=== PATIENT | male | born 1975 | race Caucasian/White ===

== ENCOUNTER 2018-02-06 09:35 | Inpatient (IN) | payer MEDICAID ==
[~2018-02-06] VITALS: Ht 162.6 cm; Wt 74.8 kg
[2018-02-06] VITALS (9 sets, daily range): BP systolic 91–122; BP diastolic 51–74
--- NOTE | 2018-02-06 09:35 | NUR ---
PER EMS PT WAS REPORTED TO HAVE VOMITTED BLOOD X 2 EPISODES THIS AM. PT WAS HYPOTENSIVE ON SCENE 70 SYSTOLIC. 600 CCS NSS GIVEN BY EMS. JAUNDICED APPEARANCE, ALERT AND ORIENTED ON ARRIVAL. PT ADMITS VOMITTING BLOOD; SKIN IS INTACT, JAUNDICED/WARM/DRY; AAOX4, PERRL, LUNGS CLEAR BL, BREATHING UNLABORED; HR EVEN AND REGULAR, BL PERIPHERAL PULSES PRESENT; BS ACTIVE X4, NO TENDERNESS TO PALPATION, NO HEPATOSPLENOMEGALLY PALPATED, RESONANT TO PERCUSSION; PT DENIES ANY FEVER, CP, SOB, OR COUGH AT THIS TIME; PT STATES 0/10 PAIN AT THIS TIME; VSS; PATIENT POSITIONED FOR COMFORT; HOB ELEVATED; BEDRAILS UP X2; BED DOWN.
--- NOTE | 2018-02-06 09:36 | NUR ---
PT BIBA ALS TO BED 4
--- NOTE | 2018-02-06 09:56 | NUR ---
DR GO EVALUATING PT AT BEDSIDE
[2018-02-06] MEDS ORDERED: PANTOPRAZOLE 40 MG INJ VIAL IVP ONE (10:00)
[2018-02-06] MEDS ORDERED: ONDANSETRON 4 MG/2 ML VIAL IVP ONE ×2 (10:00→11:15)
[2018-02-06] MEDS ORDERED: FAMOTIDINE 20 MG/2 ML VIAL IVP ONE (10:00)
--- NOTE | 2018-02-06 10:09 | NUR ---
edmd aware of pt BP, ordered to hang NSS 1000 ml
[2018-02-06] MEDS ORDERED: OCTREOTIDE ACETATE 1.25 MG in NACL 0.9% 250 ML IV SCH (10:30)
[2018-02-06] MEDS ORDERED: OCTREOTIDE ACETATE 100 MCG/ML VIAL IV SCH (10:30)
[2018-02-06] MEDS: NACL 0.9% 1,000 ML IV SCH ×2 (10:31→10:32)
[2018-02-06] MEDS ORDERED: NACL 0.9% 1,000 ML IV SCH ×2 (10:33→11:36)
--- NOTE | 2018-02-06 10:36 | NUR ---
# 16 FR NG tube placed to R nare. Placement checked by auscultation of instilled air into stomach and aspiration of gastric contents. Tubing taped in place to prevent dislodging. Patient tolerated WELL
--- NOTE | 2018-02-06 10:40 | NUR ---
XRAY AT BEDSIDE
--- NOTE | 2018-02-06 10:53 | NUR ---
PT ON BED IN NAD. NO IDENTIFIED REQUESTS AT THIS TIME
--- NOTE | 2018-02-06 10:54 | NUR ---
AWAITING NARCISA DRIP FROM PHARMACY
[2018-02-06 10:56] LABS: HEMOGLOBIN 7.3 g/dL (12.0-18.0); LYMPHOCYTES # (AUTO) 1.5 K/uL (2.0-11.5); MONOCYTES # (AUTO) 0.4 K/uL (0.8-1.0); NEUTROPHILS # (AUTO) 1.9 K/uL (1.8-7.7)
--- NOTE | 2018-02-06 11:00 | NUR ---
one episode of large bright red, clotting blood emesis. edmd aware
[2018-02-06 11:05] LABS: BASOPHILS # (AUTO) 0.2 K/uL (0.00-0.22); EOSINOPHILS % (AUTO) 1.1 % (0.0-4.0); HEMATOCRIT 22.1 % (36-52); LYMPHOCYTES % (AUTO) 38.2 % (20.5-51.1); MEAN CORPUSCULAR HEMOGLOBIN 32 pg (27-31); MEAN CORPUSCULAR HGB CONC 33 g/dL (33-37); MEAN CORPUSCULAR VOLUME 97.4 fL (80-94); MONOCYTES % (AUTO) 9.6 % (1.7-9.3); NEUTROPHILS % (AUTO) 47.1 % (42.2-75.2); PLATELET COUNT (AUTO) 81 K/uL (140-450); RED BLOOD CELL COUNT(AUTO) 2.27 MIL/uL (4.20-6.10); RED CELL DISTRIBUTION WIDTH 18.2 % (11.6-13.7); WHITE BLOOD COUNT (AUTO) 4.1 K/uL (4.8-10.8)
[2018-02-06 11:06] LABS: ANION GAP 13.2 (8-16); CARBON DIOXIDE 23.9 mmol/L (21-32); CREATININE 0.7 mg/dL (0.7-1.3); POTASSIUM 4.1 mmol/L (3.5-5.1)
[2018-02-06 11:10] LABS: PROTHROMBIN TIME 18.9 secs (10.8-13.4)
[2018-02-06 11:18] LABS: ALBUMIN 1.8 g/dL (3.4-5.0); TOTAL BILIRUBIN 1.3 mg/dL (0.0-1.0)
[2018-02-06 11:19] LABS: APPEARANCE,URINE HAZY (CLEAR); BILIRUBIN,URINE 1+ (NEGATIVE); BLOOD, URINE NEGATIVE (NEGATIVE); COLOR,URINE YELLOW (YELLOW); LEUKOCYTE ESTERASE ,URINE NEGATIVE (NEGATIVE); NITRITE, URINE NEGATIVE (NEGATIVE); PH,URINE 6.5 (5.0-9.0); UGLUCOSE NEGATIVE (NEGATIVE)
[2018-02-06 11:25] LABS: RBC,URINE NONE SEEN /HPF (0-5); WBC,URINE 0-5 (RARE) /HPF (0-5)
[2018-02-06 11:26] LABS: HYALINE CASTS, URINE 0-10 /LPF (None Seen)
[2018-02-06] MEDS ORDERED: HYDROcodone/APAP 5/325 MG 1 TAB TAB PO PRN (11:40)
[2018-02-06] MEDS ORDERED: ONDANSETRON 4 MG/2 ML VIAL IM/IVP PRN (11:40)
[2018-02-06] MEDS ORDERED: ZOLPIDEM 5 MG TAB PO PRN (11:40)
[2018-02-06] MEDS ORDERED: DOCUSATE SODIUM 100 MG GELCAP PO PRN (11:40)
[2018-02-06] MEDS ORDERED: LORazepam 2 MG/ML VIAL IM/IVP PRN (11:40)
[2018-02-06] MEDS ORDERED: MORPHINE SULFATE 2 MG/ML SYR IVP PRN (11:40)
--- NOTE | 2018-02-06 11:50 | NUR ---
Patient will be admitted to care of dr. welsh. Admited to icu 2. Will go to room 2. Belongings list completed. Report to Masha VILLARREAL.
--- NOTE | 2018-02-06 12:01 | NUR ---
RECEIVED REPORT FOR CONTINUITY OF CARE FROM HEPATOLOGY PHYSICIAN AT BEDSIDE. PATIENT IS AAOX4, ABLE TO FOLLOW COMMANDS AND MAKE NEEDS KNOWN. SKIN IS WARM AND DRY, JAUNDICE, INTACT. HE HAS PERIPHERAL IV SITE TO RIGHT AC, 20 GAUGE AND LEFT AC, 18 GAUGE. PATIENT IS ON ROOM AIR, VITAL SIGNS STABLE. NGT IN PLACE TO RIGHT NARES WITH BLOODY SECRETIONS IN SUCTION. HOB IS SEMI GONZALES, ALL SAFETY PRECAUTIONS IN PLACE, CALL LIGHT WITHIN REACH. NO SIGNS OF DISTRESS NOTED AT THIS TIME, WILL CONTINUE TO MONITOR.
--- NOTE | 2018-02-06 12:45 | NUR ---
DR. PEREZ AT BEDSIDE TO EXAMINE PATIENT AND OBTAIN INFORMED CONSENT FOR CT SCAN OF ABDOMEN WITH CONTRAST AND BLOOD TRANSFUSION, WILL FOLLOW UP ON ANY ORDERS
--- NOTE | 2018-02-06 13:05 | NUR ---
DR. AGOSTO IN TO SEE AND EXAMINE PATIENT, UPDATED ON PATIENT'S CONDITION. WILL FOLLOW UP ON ANY ORDERS.
--- NOTE | 2018-02-06 13:06 | NUR ---
CALLED RADIOLOGY TO LET THEM KNOW THAT PATIENT HAS SIGNED THE CONSENT FOR CT SCAN OF ABDOMEN/PELVIS WITH CONTRAST AND IS READY TO GO, HOWEVER THE TECH STATED THEY WILL CALL BACK WHEN THEY ARE READY FOR PATIENT.
--- NOTE | 2018-02-06 13:20 | NUR ---
LAB CALLED, STATED THAT THE BLOOD IS READY FOR TRANSFUSION.
--- NOTE | 2018-02-06 13:35 | NUR ---
STARTED BLOOD TRANSFUSION ON PATIENT, TEMP IS 98.7, HR 84, RESP 13, BP 91/51. WILL RECHECK VITALS IN 15 MINS. NO SIGNS OF DISTRESS NOTED AT THIS TIME, WILL CONTINUE TO MONITOR
[2018-02-06] MEDS ORDERED: LORazepam 2 MG/ML VIAL IM/IVP SCH (13:58)
[2018-02-06 14:26] LABS: BARBITURATE, URINE NEG. ng/ml (NEG <=200); BENZODIAZEPINE, URINE NEG. ng/mL (NEG <=200); CANNABINOID, URINE NEG. ng/mL (NEG <=50); COCAINE, URINE NEG. ng/mL (NEG <=300); OPIATE, URINE NEG. ng/mL (NEG <=2000); PHENCYCLIDINE SCREEN,URINE NEG. ng/mL (NEG <=25)
[2018-02-06 14:30] LABS: FREE T4 (FREE THYROXINE) 0.98 ng/dL (0.76-1.46); MAGNESIUM 1.5 mg/dL (1.8-2.4); PHOSPHORUS 3.2 mg/dL (2.5-4.9); THYROID STIMULATING HORMONE 2.52 uIU/mL (0.34-3.74)
--- NOTE | 2018-02-06 15:31 | NUR ---
PATIENT OBSERVED RESTING COMFORTABLY, BLOOD TRANSFUSION STILL IN PROCESS, NO S/S OF REACTION NOTED. WILL CONTINUE TO MONITOR
--- NOTE | 2018-02-06 15:48 | NUR ---
1 UNIT PRBC TRANSFUSION IS COMPLETE, PATIENT TOLERATED WELL. NO S/S OF REACTION NOTED.
--- NOTE | 2018-02-06 16:00 | NUR ---
STARTED TRANSFUSION OF PLATELET PHERESIS, VITAL SIGNS STABLE AT THIS TIME, WILL CONTINUE TO MONITOR PATIENT.
--- NOTE | 2018-02-06 16:18 | NUR ---
RADIOLOGY CALLED REGARDING CT SCAN OF ABDOMEN WITH CONTRAST, HOWEVER PATIENT STILL TRANSFUSING PLATELETS. THEY STATED THEY WILL CALL BACK AROUND 6 WHEN TRANSFUSION SHOULD BE COMPLETE.
[2018-02-06] MEDS ORDERED: DEXTROSE 50% 50 ML SYR IVP PRN (16:40)
[2018-02-06] MEDS ORDERED: LORazepam 2 MG/ML VIAL IVP PRN (16:50)
--- NOTE | 2018-02-06 16:55 | NUR ---
PATIENT'S FAMILY AT BEDSIDE, UPDATED ON PATIENT'S CONDITION. NO SIGNS OF DISTRESS NOTED, NO S/S OF REACTION TO TRANSFUSION. WILL CONTINUE TO MONITOR
[2018-02-06 16:56] LABS: CHOL/HDL RATIO 7.4 (1-4.5)
[2018-02-06] MEDS ORDERED: METF1000 PO (17:06)
--- NOTE | 2018-02-06 17:23 | NUR ---
PATIENT HAD A BOWEL MOVEMENT,SOFT AND BLACK. PATIENT WAS CLEANED AND REPOSITIONED. TOLERATED WELL, NO SIGNS OF DISTRESS NOTED.
--- NOTE | 2018-02-06 17:54 | NUR ---
PLATELET TRANSFUSION IS COMPLETE, PATIENT TOLERATED WELL, NO SIGNS OF DISTRESS NOTED, NO S/S OF REACTIONS NOTED. WILL CONTINUE TO MONITOR.
[2018-02-06] MEDS ORDERED: INSULIN LISPRO SLIDING SCALE 100 UNITS/ML VIAL SUBQ PRN (18:00)
--- NOTE | 2018-02-06 18:08 | NUR ---
DR. VASQUEZ IN TO SEE AND EXAMINE PATIENT, UPDATED ON PATIENT'S CONDITION. WILL FOLLOW UP ON ANY ORDERS.
[2018-02-06] MEDS: DEXT 5% / NACL 0.9% 500 ML IV SCH (18:11)
--- NOTE | 2018-02-06 18:26 | NUR ---
PATIENT IS OFF UNIT TO GO TO CT SCAN, ACCOMPANIED BY RN AND RESIDENTIAL HOUSEKEEPER, MONITOR AT BEDSIDE, NO SIGNS OF DISTRESS NOTED.
[2018-02-06] MEDS ORDERED: PANTOPRAZOLE 80 MG in NACL 0.9% 100 ML IV SCH (18:30)
[2018-02-06] MEDS ORDERED: MAG SULF 2000 MG/WATER PREMIX 50 ML IV SCH (18:30)
--- NOTE | 2018-02-06 18:35 | NUR ---
PATIENT IS BACK FROM CT SCAN, VS STABLE, NO SIGNS OF DISTRESS NOTED. WILL CONTINUE TO MONITOR
[2018-02-06] MEDS: LORazepam 2 MG/ML VIAL IM/IVP SCH (18:58)
[2018-02-06] MEDS ORDERED: PHYTONADIONE 10 MG/ML AMP SUBQ SCH (19:00)
--- NOTE | 2018-02-06 19:20 | NUR ---
RECEIVED BEDSIDE REPORT FROM MORNING SHIFT NURSE. PATIENT AWAKE AND ALERT, ORIENTED X4, ERITREAN SPEAKER UNDERSTAND CHILEAN. BILATERAL LUNG SOUNDS CLEAR. NO ACUTE RESPIRATORY DISTRESS NOTED. O2 SAT ABOVE 95% ON ROOM AIR. NGT ON RIGHT NARES. PLACEMENT CHECKED, 30CC BLOOD LIKE FLUID REMOVED FROM NGT. DENIES ANY PAIN AT THIS TIME. PATIENT HAS PERIPHERAL LINES TO RIGHT AC 20G X2 AND LEFT AC 18G, INTACT AND PATENT NOTED. RUNNING D5NS 60ML/HR AND SANDOSTATINE 50MCG/HR, 10ML/HR NOTED. SKIN IS WARM TO TOUCH AND INTACT. HOB ELEVATED, BED IN LOW POSITION, CALL LIGHT WITHIN REACH, BILATERAL PADDED SIDERAILS FOR SEIZURE PRECAUTION. WILL CONTINUE TO MONITOR.
[2018-02-06 19:35] LABS: BASOPHILS % (AUTO) 0.8 % (0.0-2.0); HEMATOCRIT 22.3 % (36-52); HEMOGLOBIN 7.4 g/dL (12.0-18.0); LYMPHOCYTES # (AUTO) 0.7 K/uL (2.0-11.5); LYMPHOCYTES % (AUTO) 12.6 % (20.5-51.1); MEAN CORPUSCULAR HEMOGLOBIN 32 pg (27-31); MEAN CORPUSCULAR HGB CONC 33 g/dL (33-37); MEAN CORPUSCULAR VOLUME 95.7 fL (80-94); MONOCYTES # (AUTO) 1.1 K/uL (0.8-1.0); NEUTROPHILS % (AUTO) 67.6 % (42.2-75.2); PLATELET COUNT (AUTO) 103 K/uL (140-450); RED BLOOD CELL COUNT(AUTO) 2.33 MIL/uL (4.20-6.10); RED CELL DISTRIBUTION WIDTH 18.9 % (11.6-13.7); WHITE BLOOD COUNT (AUTO) 5.9 K/uL (4.8-10.8)
--- NOTE | 2018-02-06 19:40 | NUR ---
IS AT BEDSIDE TO CHECK THE PATIENT. WILL FOLLOW ORDERS.
--- NOTE | 2018-02-06 19:50 | NUR ---
NOTIFIED CBC RESULTS TO DR. FRIAS. WILL FOLLOW ORDERS.
[2018-02-06] MEDS: PANTOPRAZOLE 40 MG INJ VIAL IVP SCH (20:03)
[2018-02-06] MEDS: LACTULOSE 20 GM/30 ML UDC PO SCH (20:03)
[2018-02-06] MEDS: BLOOD GLUCOSE MONITORING 1 DEV DEV FS SCH (20:49)
--- NOTE | 2018-02-06 21:30 | NUR ---
STARTED BLOOD TRANSFUSION FROZEN PLASMA AT THIS TIME. VSS AT THIS TIME. DENIES PAIN.
--- NOTE | 2018-02-06 21:50 | NUR ---
NO REACTION NOTED.
[2018-02-07] VITALS (9 sets, daily range): BP systolic 102–162; BP diastolic 59–96
--- NOTE | 2018-02-07 | NUR ---
PATIENT HAD BOWEL MOVEMENT AT THIS TIME. MODERATE AMOUNT OF LOOSE BLOODY DARK RED COLORED STOOL NOTED. PATIENT DENIES ANY PAIN AT THIS TIME. WILL CONTINUE TO MONITOR.
[2018-02-07] MEDS: LORazepam 2 MG/ML VIAL IM/IVP SCH ×4 (00:06→17:27)
--- NOTE | 2018-02-07 00:30 | NUR ---
STARTED BLOOD TRANSFUSION PACK OF RBC AT THIS TIME. VSS AT THIS TIME. DENIES PAIN. WILL CONTINUE TO MONITOR.
--- NOTE | 2018-02-07 00:50 | NUR ---
NO REACTION NOTED.
[2018-02-07] MEDS: DEXT 5% / NACL 0.9% 500 ML IV SCH (02:50)
--- NOTE | 2018-02-07 03:30 | NUR ---
PATIENT HAD BOWEL MOVEMENT AT THIS TIME. LARGE AMOUNT LOOSE DARK RED COLOR BLOODY STOOL NOTED. DENIES ANY PAIN AT THIS TIME. NO ACUTE DISTRESS NOTED. WILL CONTINUE TO MONITOR.
--- NOTE | 2018-02-07 05:00 | NUR ---
SPOKE WITH DR. FRIAS, NOTIFIED PATIENT HAD LARGE AMOUNT OF DARK RED COLOR LOOSE STOOL AND 2ND PRBC BLOOD TRANSFUSION DONE AT 0345. DR. FRIAS WILL ORDER SOME LABS. WILL FOLLOW THE ORDERS.
--- NOTE | 2018-02-07 06:10 | NUR ---
PATIENT IN ASLEEP AT THIS TIME, NO ACUTE DISTRESS NOTED. HAD LARGE AMOUNT LOOSE DARK RED COLOR STOOL NOTED. DENIES PAIN. WILL CONTINUE TO MONITOR.
[2018-02-07] MEDS: BLOOD GLUCOSE MONITORING 1 DEV DEV FS SCH ×4 (06:32→20:49)
[2018-02-07 06:51] LABS: HEMATOCRIT 24.3 % (36-52); HEMOGLOBIN 8.2 g/dL (12.0-18.0); MEAN CORPUSCULAR HEMOGLOBIN 32 pg (27-31); MEAN CORPUSCULAR HGB CONC 34 g/dL (33-37); MEAN CORPUSCULAR VOLUME 94.4 fL (80-94); PLATELET COUNT (AUTO) 89 K/uL (140-450); RED BLOOD CELL COUNT(AUTO) 2.57 MIL/uL (4.20-6.10); RED CELL DISTRIBUTION WIDTH 17.9 % (11.6-13.7); WHITE BLOOD COUNT (AUTO) 6.3 K/uL (4.8-10.8)
--- NOTE | 2018-02-07 07:15 | NUR ---
BEDSIDE REPORT GIVEN TO MORNING SHIFT NURSE FOR CONTINUITY OF CARE.
--- NOTE | 2018-02-07 07:15 | NUR ---
RECEIVED REPORT FROM PHIL CURRIE. PT IS AWAKE, A&OX4. ABLE TO AMBULATE WITH ASSISTANCE AND MOVES ALL EXTREMITIES. PT IS ON SEIZURE PRECAUTION, SIGN POSTED AND RAIL PADDING ON RAILS. PT HAS NGT BUT NOT ON HOOKED UP. PERRLA. PT IS ON LABOR ARBITRATOR HEARING OFFICE; NSR ON MONITOR. PT HAD 3 PERIPHERAL IVS; RIGHT AC 20G, A 2ND RIGHT AC 20G AND A LEFT AC 18 G. PT IS NPO EXCEPT MEDICATION. PT IS ON SANDOSTATIN 50MCG/HR; D5NS RUNNING AT 60 ML/HR. LUNGS ARE CLEAR BILATERALLY. S1S2 HEARD. BOWEL SOUNDS ARE ACTIVE IN ALL 4 QUADRANTS; ABD IS SOFT. PT HAS SCDS ON. BED IS IN THE LOWEST POSITION; HOB ELEVATED 35%; BED LOCKED AND ALARM ON. CALL LIGHT WITHIN REACH Addendum: 02/07/18 at 1214 by Gabriella Hidalgo RN Pt has yellowing of sclera and skin coloring it. Pt has 10mL residuals in his stomach; the fluid that is removed to evaluate is clear with red clots of blood mixed in. Residuals returned to stomach
[2018-02-07 07:17] LABS: EOSINOPHILS % (MANUAL) 2 % (0-4); LYMPHOCYTES % (MANUAL) 25 % (20-46); MONOCYTES % (MANUAL) 9 % (5-12)
--- NOTE | 2018-02-07 07:20 | NUR ---
DR. KRUSE AND RESIDENT GROUP CAME TO ASSESS PT.
--- NOTE | 2018-02-07 07:25 | NUR ---
PT USED BEDSIDE COMMODE; OVER 500ML OF MAROON BLOOD IN COMMODE. THICK WITH BLOOD CLOTS. OCCULT BLOOD SAMPLE TAKEN TO LAB AT 0730.
--- NOTE | 2018-02-07 07:40 | NUR ---
OLEG SPOKE WITH DR. RAMIREZ REGARDING BLOOD IN STOOL; INCREASED DOSE OF SANDOSTATIN TO 100MCG/HR (20ML/HR)
[2018-02-07 07:43] LABS: ANION GAP 11.5 (8-16); CARBON DIOXIDE 26.2 mmol/L (21-32); POTASSIUM 3.7 mmol/L (3.5-5.1)
[2018-02-07 07:44] LABS: CREATININE 0.8 mg/dL (0.7-1.3)
[2018-02-07] MEDS: PANTOPRAZOLE 40 MG INJ VIAL IVP SCH ×2 (08:39→21:01)
[2018-02-07] MEDS: LACTULOSE 20 GM/30 ML UDC PO SCH (08:39)
[2018-02-07] MEDS: THIAMINE 100 MG TAB NG SCH (08:40)
[2018-02-07] MEDS: MULTIVITAMIN 1 TAB PO SCH (08:40)
[2018-02-07] MEDS: FOLIC ACID 1 MG TAB NG SCH (08:40)
[2018-02-07] MEDS ORDERED: THIAMINE 100 MG TAB PO SCH (09:00)
[2018-02-07] MEDS ORDERED: FOLIC ACID 1 MG TAB PO SCH (09:00)
[2018-02-07] MEDS ORDERED: OCTREOTIDE ACETATE 1.25 MG in NACL 0.9% 250 ML IV SCH ×4 (09:00)
[2018-02-07] MEDS ORDERED: PROBIOTIC SCREEN 1 EA MISC MC PRN (10:50)
[2018-02-07] MEDS ORDERED: DEXT 5% /NACL 0.9% 1,000 ML IV SCH (10:51)
--- NOTE | 2018-02-07 10:52 | NUR ---
Pt resting comfortably. Bed locked and in lowest position, positioned for comfort. Call light within reach
[2018-02-07] MEDS ORDERED: LACTULOSE 20 GM/30 ML UDC PO SCH (11:07)
[2018-02-07] MEDS: ACETAMINOPHEN 325 MG TAB PO PRN ×2 (11:15→17:27)
--- NOTE | 2018-02-07 11:20 | NUR ---
PATIENT HAS BEEN SCREENED AND CATEGORIZED HIGH NUTRITION RISK. PATIENT WILL BE SEEN WITHIN 1-2 DAYS OF ADMISSION. 02/07/18 02/08/[address]
--- NOTE | 2018-02-07 11:31 | NUR ---
Very large, dark maroon bowel movement with excessive blood clots. Roughly
--- NOTE | 2018-02-07 11:53 | NUR ---
Nani, social science manager, at bedside
--- NOTE | 2018-02-07 12:11 | NUR ---
Millie from RD came to see pt
[2018-02-07] MEDS ORDERED: MIDAZOLAM 2 MG/2 ML VIAL ONE (12:47)
[2018-02-07] MEDS ORDERED: diphenhydrAMINE 50 MG/ML VIAL ONE (12:47)
[2018-02-07] MEDS ORDERED: fentaNYL 0.05 MG/ML VIAL ONE (12:47)
--- NOTE | 2018-02-07 13:35 | NUR ---
DR. VASQUEZ AT BEDSIDE WITH OR STAFF FOR EGD. PT HAS BEEN MEDICATED FOR PROCEDURE. BEDSIDE TIME OUT WAS CONDUCTED. 5 ESO. VARICES FOUND AND BANDED. H.PYLORI BIOPSY COLLECTED.
[2018-02-07] MEDS: MIDAZOLAM 2 MG/2 ML VIAL IVP SCH ×2 (13:41→14:23)
[2018-02-07] MEDS: fentaNYL 0.05 MG/ML VIAL IVP SCH ×2 (13:42→14:22)
[2018-02-07] MEDS: diphenhydrAMINE 50 MG/ML VIAL IVP SCH ×2 (13:45→14:21)
[2018-02-07] MEDS: POTASSIUM CHL 20 MEQ/D5-1/2NS 1,000 ML IV SCH (14:49)
--- NOTE | 2018-02-07 15:13 | NUR ---
PT RESTING IN BED; 1ST ROUND OF ROCEPHIN STARTED.
--- NOTE | 2018-02-07 16:03 | NUR ---
02/07/18 RD INITIAL ASSESSMENT COMPLETED PLEASE REFER TO NUTRITION ASSESSMENT UNDER CARE ACTIVITY FOR ESTIMATED NUTRITIONAL NEEDS. 1. WHEN/IF MEDICALLY STABLE TO BEGIN NUTRITION, CONSIDER ADVANCE DIET TOLERATED TO [facility] 60GM DIET 2. PROVIDED NUTRITION EDUCATION HANDOUTS 3. FOLLOW-UP ALCOHOL ABUSE, T2DM, AND GENERAL WELLNESS NUTRITION EDUCATION 4. RD TO FOLLOW-UP 2-3 DAYS, HIGH RISK REJI VASQUEZ RD
--- NOTE | 2018-02-07 17:00 | NUR ---
Dr Mata came to speak with pt's about EDG and pt update.
--- NOTE | 2018-02-07 18:00 | NUR ---
went home for the evening. Let her know about pt's changing of rooms.
--- NOTE | 2018-02-07 18:30 | NUR ---
Transferred pt to TELE. Gave report to Michelle VILLARREAL for continuation of care.
--- NOTE | 2018-02-07 18:31 | NUR ---
PT ADMITTED TO TELE. BEDSIDE REPORT GIVEN BY MAMMOGRAPHY TECHNOLOGIST. PT AMBULATED TO BED WITH STEADY GAIT. PT CALM AND QUIET. INTRODUCED SELF AND UPDATED BOARD. NO SIGNS OF DISTRESS. CALL LIGHT WITHIN REACH. BED ALARM ON. WILL CONTINUE TO MONITOR.
--- NOTE | 2018-02-07 19:25 | NUR ---
ENDORSED PT TO SCIENTIFIC RESEARCH MANAGER NURSE LORENZO AT BEDSIDE FOR CONTINUITY OF CARE. PT IN STABLE CONDITION.
--- NOTE | 2018-02-07 19:30 | NUR ---
RECEIVED PATIENT ASLEEP ON BED. PATIENT OCCITAN SPEAKING, AA0X2. FALL PRECAUTION IMPLEMENTED. CALL LIGHT WITHIN REACH.
--- NOTE | 2018-02-07 21:00 | NUR ---
SEEN PATIENT ASLEEP ON BED. FALL PRECAUTION APPLIED. NO S/S OF DISTRESS NOTED AT THIS TIME. CALL LIGHT WITHIN REACH. WILL CONTINUE TO MONITOR.
[2018-02-07] MEDS: RIFAXIMIN 550 MG TAB PO SCH (21:01)
[2018-02-08] VITALS: BP 133/82
--- NOTE | 2018-02-08 01:56 | NUR ---
RECEIVED PATIENT ASLEEP ON BED. PATIENT AAOX2, WELSH SPEAKING. FALL PRECAUTION APPLIED. CALL LIGHT WITHIN REACH. WILL CONTINUE TO [facility].
--- NOTE | 2018-02-08 03:10 | NUR ---
NO EPISODE OF BLEEDING NOTED AT THIS TIME. ALL NEEDS ATTENDED. WILL CONTINUE TO MONITOR.
[2018-02-08 04:00] VITALS: BP 122/88
[2018-02-08] MEDS: LORazepam 2 MG/ML VIAL IM/IVP SCH ×5 (06:00→20:14)
--- NOTE | 2018-02-08 06:00 | NUR ---
PATIENT HAS NO SIGN OF RESTLESSNESS OR AGITATION AT THIS TIME. PATIENT ASLEEP WELL .
[2018-02-08] MEDS: BLOOD GLUCOSE MONITORING 1 DEV DEV FS SCH ×4 (06:44→20:30)
[2018-02-08 07:14] LABS: HEMATOCRIT 24.7 % (36-52); HEMOGLOBIN 8.5 g/dL (12.0-18.0); MEAN CORPUSCULAR HEMOGLOBIN 33 pg (27-31); MEAN CORPUSCULAR HGB CONC 34 g/dL (33-37); MEAN CORPUSCULAR VOLUME 96.4 fL (80-94); PLATELET COUNT (AUTO) 89 K/uL (140-450); RED BLOOD CELL COUNT(AUTO) 2.56 MIL/uL (4.20-6.10); WHITE BLOOD COUNT (AUTO) 6.5 K/uL (4.8-10.8)
--- NOTE | 2018-02-08 07:20 | NUR ---
ENDORSEMENT GIVEN AT BEDSIDE TO AM SHIFT NURSE FOR CONTINUITY OF CARE. PATIENT IN STABLE CONDITION.
--- NOTE | 2018-02-08 07:21 | NUR ---
RECEIVED REPORT FROM ERP ANALYST NURSE LORENZO AT BEDSIDE FOR CONTINUITY OF CARE. PT IS AWAKE AND ORIENTED X4. INTRODUCED SELF AND UPDATED BOARD. PT DENIES PAIN. SKIN INTACT. NO EPISODES OF BLOOD IN STOOL. DENIES ANY VOMITING OR NAUSEA. NO COUGH. NO SOB. O2 SAT 98% ON RA. LUNG SOUNDS CLEAR ON AUSCULTATION, BS PRESENT. ASKED IF PT NEEDED ANYTHING. STATED "NO." CALL LIGHT WITHIN REACH. BED IN LOW POSITION, WILL CONTINUE TO MONITOR.
[2018-02-08 07:54] LABS: MAGNESIUM 2.2 mg/dL (1.8-2.4)
[2018-02-08 07:58] LABS: ANION GAP 9.4 (8-16); CARBON DIOXIDE 29.4 mmol/L (21-32); CREATININE 0.6 mg/dL (0.7-1.3); POTASSIUM 3.8 mmol/L (3.5-5.1)
[2018-02-08 08:00] VITALS: BP 149/95
[2018-02-08 08:22] LABS: FERRITIN 141 ng/mL (30-400); FOLIC ACID > 20.00 ng/mL (>3.0)
[2018-02-08 08:39] LABS: PROTHROMBIN TIME 15.9 secs (10.8-13.4)
[2018-02-08 08:40] LABS: EOSINOPHILS % (MANUAL) 9 % (0-4); LYMPHOCYTES % (MANUAL) 19 % (20-46); MONOCYTES % (MANUAL) 10 % (5-12)
[2018-02-08] MEDS ORDERED: OCTREOTIDE ACETATE 1.25 MG in NACL 0.9% 250 ML IV SCH ×3 (09:00→13:20)
[2018-02-08] MEDS ORDERED: LACTULOSE 20 GM/30 ML UDC PO SCH (09:00)
[2018-02-08] MEDS ORDERED: SODIUM PHOS / POTASSIUM PHOS 1 PKT PDR PO SCH (09:15)
[2018-02-08] MEDS: RIFAXIMIN 550 MG TAB PO SCH ×2 (09:16→20:14)
[2018-02-08] MEDS: LACTULOSE 20 GM/30 ML UDC PO SCH (09:17)
[2018-02-08] MEDS: LACTOBACILLUS RHAMNOSUS GG 1 EACH CAP PO SCH (09:17)
[2018-02-08] MEDS: FOLIC ACID 1 MG TAB NG SCH (09:17)
[2018-02-08] MEDS: PANTOPRAZOLE 40 MG INJ VIAL IVP SCH ×2 (09:17→20:37)
[2018-02-08] MEDS: THIAMINE 100 MG TAB NG SCH (09:18)
[2018-02-08] MEDS: MULTIVITAMIN 1 TAB PO SCH (09:18)
--- NOTE | 2018-02-08 09:18 | NUR ---
STARTED SANDOSTATIN IV 250ML BAG AT 5ML/HR ACCORDING TO MD ORDER.
--- NOTE | 2018-02-08 10:00 | NUR ---
PT WAS GIVEN BED BATH BY PROCESS TECHNICIAN. NO REPORTS OF BLOODY DIARRHEA FROM PT. CHECKED IV LINES AND INTACT. NO SIGNS OF DISTRESS. CALL LIGHT WITHIN REACH. WILL CONTINUE TO MONITOR.
[2018-02-08 12:00] VITALS: BP 141/84
--- NOTE | 2018-02-08 12:16 | NUR ---
PT REPORTED HAVING SHAKINESS THIS MORNING. ADMINISTERED ATIVAN IVP SCHEDULED. PT TOLERATED WELL. PT SAT UP IN BED. EATING LUNCH TRAY AND WATCHING TV. DENIES PAIN. NO SIGNS OF DISTRESS. CALL LIGHT WITHIN REACH. WILL CONTINUE TO MONITOR.
--- NOTE | 2018-02-08 14:16 | NUR ---
STARTED NEW 250 ML BAG OF SANDOSTATIN IV DRIP AT 5ML/HR. PT TOLERATING WELL
[2018-02-08 16:00] VITALS: BP 146/61
--- NOTE | 2018-02-08 16:30 | NUR ---
PT FAMILY MEMBER AT BEDSIDE. NO SIGNS OF DISTRESS. CALL LIGHT WITHIN REACH. WILL CONTINUE TO MONITOR.
[2018-02-08] MEDS: POTASSIUM CHL 20 MEQ/D5-1/2NS 1,000 ML IV SCH (19:29)
--- NOTE | 2018-02-08 19:30 | NUR ---
ENDORSED PT TO RESIDENTIAL TECH NURSE CHACHO AT BEDSIDE FOR CONTINUITY OF CARE. PT IN STABLE CONDITION.
--- NOTE | 2018-02-08 19:30 | NUR ---
RECEIVED PT REPORT AT BEDSIDE FROM DAY SHIFT NURSE. PT IN STABLE CONDITION. PT IS AT BEDSIDE. PT IS A/O X4. PT IS ON RA. IV ACCESS IN R AC 20G, R FA 20G AND L AC 18G. IVS ARE PATENT AND INTACT. PT SKIN IS INTACT. NO C/O PAIN AT THIS TIME. BED LOCKED, LOWEST POSITION WITH SIDE RAILS UP X2. BOARD UPDATED. WILL CONTINUE TO MONITOR PT.
[2018-02-08 20:00] VITALS: BP 130/83
--- NOTE | 2018-02-08 20:36 | NUR ---
BS CHECKED, 190. INSULIN COVERAGE GIVEN PER MD ORDERS. PT TOLERATED WELL. WILL CONTINUE TO MONITOR.
--- NOTE | 2018-02-08 22:11 | NUR ---
PT ASLEEP IN BED. NO S/SX OF DISTRESS. WILL CONTINUE TO MONITOR.
--- NOTE | 2018-02-08 23:58 | NUR ---
ASSISTED PT UP TO BATHROOM. PT TOLERATED WELL. PT NOW BACK IN BED WITH CALL LIGHT IN REACH. WILL CONTINUE TO MONITOR.
[2018-02-09] VITALS: BP 130/83
--- NOTE | 2018-02-09 02:16 | NUR ---
PT IS ASLEEP IN BED. NO S/SX OF DISTRESS. WILL CONTINUE TO MONITOR.
[2018-02-09 04:00] VITALS: BP 123/88
--- NOTE | 2018-02-09 04:00 | NUR ---
PT VS WITHIN NORMAL LIMITS. ALL NEEDS ARE MET AT THIS TIME. WILL CONTINUE TO MONITOR PT.
[2018-02-09] MEDS: LORazepam 2 MG/ML VIAL IM/IVP SCH ×2 (04:42→12:19)
[2018-02-09] MEDS: BLOOD GLUCOSE MONITORING 1 DEV DEV FS SCH ×2 (05:58→12:18)
--- NOTE | 2018-02-09 05:58 | NUR ---
BS CHECKED, 88. NO INSULIN COVERAGE NEEDED PER MD ORDERS. ALL NEEDS ARE MET AT THIS TIME.
--- NOTE | 2018-02-09 07:10 | NUR ---
ENDORSED PT TO DAY SHIFT NURSE FOR CONTINUITY OF CARE. PT IN STABLE CONDITION.
--- NOTE | 2018-02-09 07:11 | NUR ---
RECEIVED REPORT FROM POSTMASTER RELIEF NURSE. PATIENT LYING DOWN IN BED SLEEPING, AROUSABLE BY VOICE. NO DISTRESS NOTED. DENIES ANY PAIN. RESPIRATIONS EVEN, UNLABORED, ON ROOM AIR. AAOX3, CALM, COOPERATIVE, SKIN COLOR APPROPRIATE TO ETHNICITY, WARM TO TOUCH. LUNGS CTA ON ALL LOBES. REPORTS JUST HAVING A BM JUST NOW, WAS NOT ABLE TO LOOK BEFORE HE FLUSHED. DENIES ANY VOMITING THROUGHOUT NIGHT. SKIN IS INTACT, ABLE TO AMBULATE TO BATHROOM AND BACK TO BED WITH STEADY GAIT. ABDOMEN SOFT, NON-DISTENDED. REVIEWED PLAN OF CARE WITH PATIENT. PATIENT VERBALIZED UNDERSTANDING. SAFETY MEASURES IN PLACE, CALL LIGHT WITHIN REACH. WILL CONTINUE TO MONITOR.
[2018-02-09 07:33] LABS: BASOPHILS % (AUTO) 0.6 % (0.0-2.0); EOSINOPHILS # (AUTO) 0.3 K/uL (0-0.4); EOSINOPHILS % (AUTO) 4.1 % (0.0-4.0); HEMATOCRIT 25.7 % (36-52); HEMOGLOBIN 8.7 g/dL (12.0-18.0); LYMPHOCYTES # (AUTO) 2.8 K/uL (2.0-11.5); LYMPHOCYTES % (AUTO) 34.3 % (20.5-51.1); MEAN CORPUSCULAR HEMOGLOBIN 33 pg (27-31); MEAN CORPUSCULAR HGB CONC 34 g/dL (33-37); MEAN CORPUSCULAR VOLUME 96.2 fL (80-94); MONOCYTES # (AUTO) 0.6 K/uL (0.8-1.0); MONOCYTES % (AUTO) 7.6 % (1.7-9.3); NEUTROPHILS # (AUTO) 4.3 K/uL (1.8-7.7); NEUTROPHILS % (AUTO) 53.4 % (42.2-75.2); PLATELET COUNT (AUTO) 112 K/uL (140-450); RED BLOOD CELL COUNT(AUTO) 2.67 MIL/uL (4.20-6.10); RED CELL DISTRIBUTION WIDTH 17.5 % (11.6-13.7); WHITE BLOOD COUNT (AUTO) 8.1 K/uL (4.8-10.8)
[2018-02-09 08:00] VITALS: BP 131/81
[2018-02-09 08:22] LABS: MAGNESIUM 1.4 mg/dL (1.8-2.4); PHOSPHORUS 3.1 mg/dL (2.5-4.9)
[2018-02-09 08:28] LABS: ANION GAP 11.1 (8-16); CARBON DIOXIDE 26.6 mmol/L (21-32); CREATININE 0.6 mg/dL (0.7-1.3); POTASSIUM 3.7 mmol/L (3.5-5.1)
[2018-02-09] MEDS ORDERED: metFORMIN 500 MG TAB PO SCH (09:00)
[2018-02-09] MEDS: LACTULOSE 20 GM/30 ML UDC PO SCH (10:15)
[2018-02-09] MEDS: PANTOPRAZOLE 40 MG INJ VIAL IVP SCH (10:15)
[2018-02-09] MEDS: THIAMINE 100 MG TAB NG SCH (10:15)
[2018-02-09] MEDS: RIFAXIMIN 550 MG TAB PO SCH (10:16)
[2018-02-09] MEDS: LACTOBACILLUS RHAMNOSUS GG 1 EACH CAP PO SCH (10:16)
[2018-02-09] MEDS: FOLIC ACID 1 MG TAB NG SCH (10:16)
[2018-02-09] MEDS: MULTIVITAMIN 1 TAB PO SCH (10:16)
--- NOTE | 2018-02-09 10:26 | NUR ---
PATIENT LYING DOWN IN BED SLEEPING, AROUSABLE BY VOICE. NO DISTRESS NOTED. DENIES ANY PAIN. SCHEDULED MEDICATIONS DUE GIVEN. SAFETY MEASURES IN PLACE, CALL LIGHT WITHIN REACH. WILL CONTINUE TO MONITOR.
[2018-02-09] MEDS ORDERED: MAG SULF 2000 MG/WATER PREMIX 50 ML IV ONE (11:05)
[2018-02-09] MEDS ORDERED: LACT10SO11 PO (11:06)
[2018-02-09] MEDS ORDERED: PROP20TA29 PO (11:06)
[2018-02-09] MEDS ORDERED: OMEP20TC12 PO (11:10)
[2018-02-09 12:00] VITALS: BP 130/83
[2018-02-09] MEDS: MAGNESIUM SULFATE 1GM in DEXTROSE 5% 100 ML PREMIX IV SCH ×2 (12:18→13:58)
--- NOTE | 2018-02-09 12:24 | NUR ---
PATIENT SITTING IN BED WITH LUNCH TRAY IN FRONT. NO DISTRESS NOTED. DENIES ANY PAIN. NO ANXIETY NOTED. SCHEDULED MEDICATIONS DUE GIVEN. ATIVAN NOT GIVEN DUE TO NO ANXIETY AND PATIENT IS CALM. SAFETY MEASURES IN PLACE, CALL LIGHT WITHIN REACH. WILL CONTINUE TO MONITOR.
[2018-02-09] MEDS ORDERED: PROPRANOLOL 20 MG TAB PO SCH (13:00)
[2018-02-09] MEDS: POTASSIUM CHL 20 MEQ/D5-1/2NS 1,000 ML IV SCH (13:35)
--- NOTE | 2018-02-09 15:37 | NUR ---
PATIENT SITTING IN BED COMFORTABLY. NO DISTRESS NOTED. DISCHARGE INSTRUCTIONS PROVIDED TO PATIENT IN PREFERRED LANGUAGE OF NIUEAN WITH PORTAL ARCHITECT #[id number], FOLLOW-UP VISIT WITH PCP, NEW/CHANGED MEDICATIONS, PRESCRIPTIONS GIVEN TO PATIENT, DIET REGIMEN, AND TO QUIT DRINKING ALCOHOL. ANSWERED ALL OF PATIENT'S QUESTIONS REGARDING DISCHARGE. PATIENT VERBALIZED COMPLETE UNDERSTANDING. AWAITING FOR TO COME SHORER PATIENT. WILL CONTINUE TO MONITOR.
--- NOTE | 2018-02-09 16:30 | NUR ---
AT BEDSIDE READY TO TAKE PATIENT HOME. ALL BELONGINGS WITH PATIENT. ID BANDS REMOVED, IV SITES REMOVED WITH MINIMAL BLOOD AND LUMEN COMPLETELY INTACT. ESCORTED PATIENT TO LOBBY VIA WHEELCHAIR. PATIENT DISCHARGED TO HOME AT THIS TIME IN STABLE CONDITION.
[2018-02-12 15:29] LABS: TRANSFERRIN 178 mg/dL (200-370)
== END 2018-02-09 16:30 | disposition home or self-care (01) | DRG 950 ==
LOC: MED 09:35 → MIC 11:36 → MTU 02-07 18:30
PROVIDERS: ADMIT General Practice; ATTEND General Practice
PROC: 30233L1 Transfusion of Nonautologous Fresh Plasma into Peripheral Vein, Percutaneous Approach (ICD-10-PCS; 2018-02-06)
PROC: 30233N1 Transfusion of Nonautologous Red Blood Cells into Peripheral Vein, Percutaneous Approach (ICD-10-PCS; 2018-02-06)
PROC: 30233K1 Transfusion of Nonautologous Frozen Plasma into Peripheral Vein, Percutaneous Approach (ICD-10-PCS; 2018-02-06)
PROC: 06L Lower Veins, Occlusion (ICD-10-PCS; 2018-02-07)
PROC: 0DB78ZX Excision of Stomach, Pylorus, Via Natural or Artificial Opening Endoscopic, Diagnostic (ICD-10-PCS; principal; 2018-02-07 13:00)
DX: K70.31 Alcoholic cirrhosis of liver with ascites (principal); I85.01 Esophageal varices with bleeding; E43 Unspecified severe protein-calorie malnutrition; K22.6 Gastro-esophageal laceration-hemorrhage syndrome; K92.0 Hematemesis; D69.6 Thrombocytopenia, unspecified; E83.42 Hypomagnesemia; D62 Acute posthemorrhagic anemia; E83.51 Hypocalcemia; E83.39 Other disorders of phosphorus metabolism; K72.90 Hepatic failure, unspecified without coma; E11.9 Type 2 diabetes mellitus without complications; Z91.19 Patient's noncompliance with other medical treatment and regimen; E66.9 Obesity, unspecified; Z68.28 Body mass index [BMI] 28.0-28.9, adult; F10.129 Alcohol abuse with intoxication, unspecified
CPT/HCPCS: 36415; 43753; 71045; 80048; 80053; 80305; 81001; 82140; 82150; 82272; 82607; 82728; 82746; 82948; 83036; 83540; 83690; 83735; 83880; 84100; 84134; 84439; 84443; 84484; 85025; 85045; 85610; 85730; 86677; 86886; 86900; 86901; 86920; 87081; 93005; 96361; 96374; 96375; 96376; 99285; C9113; G0482; J0696; J1200; J1815; J2060; J2250; J2354; J2405; J3010; J3430; J3475; J3490; J7030; J7042; J7060; P9016; P9017; P9035; Q0092; Q9967

== ENCOUNTER 2020-09-02 16:28 | Inpatient (IN) | payer MEDICAID, SELFPAY ==
[~2020-09-02] VITALS: Ht 167.6 cm; Wt 71.2 kg
[~2020-09-02 16:28] MED LIST: LACT10SO11 PO; METF1000 PO; OMEP20TC12 PO; PROP20TA29 PO
[2020-09-02] MEDS ORDERED: OCTREOTIDE ACETATE 100 MCG/ML VIAL IV SCH (16:35)
[2020-09-02] MEDS ORDERED: OCTREOTIDE ACETATE 1.25 MG in NACL 0.9% 250 ML IV SCH (16:35)
[2020-09-02] MEDS ORDERED: NACL 0.9% 1,000 ML IV SCH (16:35)
[2020-09-02] MEDS ORDERED: PANTOPRAZOLE 40 MG INJ VIAL IVP ONE (16:35)
[2020-09-02] MEDS ORDERED: ONDANSETRON 4 MG/2 ML VIAL IVP ONE (16:35)
--- NOTE | 2020-09-02 16:35 | NUR ---
PT BIBA TO BED 8. DR HASTINGS AT BEDSIDE
--- NOTE | 2020-09-02 16:40 | NUR ---
45 Y/O MALE BIBA FROM HOME C/O BLOOD IN EMESIS. PT DRANK 18 BEERS, SYNCOPE, HIT HIS HEAD WITH VISIBLE ABRASION ON BACK OF THE HEAD, WOKE UP AND HAD 2 EMESIS EPISODES WITH BLOOD. PER MEDIC, ABOUT 1.5 CUPS OF DARK RED BLOOD. PT C/O ABD PAIN 2/10 EPIGASTRIC THAT RADIATES TO LOWER ABD. ON ASSESSMENT, ABD IS ROUND, SOFT, AND TENDER WITH BOWEL SOUNDS PRESENT X4 QUAD. PT IS NAUSEOUS. DENIES SOB, COUGH, CHEST PAIN OR CONTACT WITH ANYONE COVID POSITIVE. PT IS A/O X4 WITH EVEN AND UNLABORED RESPIRATIONS OBSERVED. PT LAYING IN BED, BED IN LOWEST POSITION, BRAKES LOCKED, X1 SIDERAIL UP. PMH: DM2 AND LIVER CIRROSIS PT STATES HE DOES NOT TAKE ANY MEDS NKA.
--- NOTE | 2020-09-02 16:54 | NUR ---
US tech at pt bedside.
[2020-09-02 16:59] LABS: BASOPHILS # (AUTO) 0.1 K/uL (0.00-0.22); BASOPHILS % (AUTO) 2.9 % (0.0-2.0); EOSINOPHILS % (AUTO) 0.1 % (0.0-4.0); HEMOGLOBIN 11.1 g/dL (12.0-18.0); LYMPHOCYTES # (AUTO) 0.6 K/uL (2.0-11.5); MEAN CORPUSCULAR HEMOGLOBIN 33 pg (27-31); MEAN CORPUSCULAR HGB CONC 34 g/dL (33-37); MEAN CORPUSCULAR VOLUME 99.6 fL (80-94); MONOCYTES # (AUTO) 0.2 K/uL (0.8-1.0); MONOCYTES % (AUTO) 4.9 % (1.7-9.3); NEUTROPHILS # (AUTO) 3.2 K/uL (1.8-7.7); NEUTROPHILS % (AUTO) 77.1 % (42.2-75.2); PLATELET COUNT (AUTO) 55 K/uL (140-450); RED BLOOD CELL COUNT(AUTO) 3.31 MIL/uL (4.20-6.10); RED CELL DISTRIBUTION WIDTH 14.3 % (11.6-13.7); WHITE BLOOD COUNT (AUTO) 4.1 K/uL (4.8-10.8)
[2020-09-02 17:10] LABS: PROTHROMBIN TIME 18.9 secs (10.8-13.4)
[2020-09-02 17:12] LABS: ALBUMIN 2.5 g/dL (3.4-5.0); ANION GAP 17.3 (8-16); CARBON DIOXIDE 21.6 mmol/L (21-32); CREATININE 0.9 mg/dL (0.6-1.3); POTASSIUM 3.9 mmol/L (3.5-5.1); TOTAL BILIRUBIN 1.2 mg/dL (0.0-1.0)
--- NOTE | 2020-09-02 17:18 | NUR ---
Pt taken to CT via rjazmín.
--- NOTE | 2020-09-02 17:30 | NUR ---
Pt brought back to ER bed 8 via hitesh.
[2020-09-02] MEDS ORDERED: cefTRIAXone 1,000 MG VIAL ONE (17:32)
[2020-09-02] MEDS ORDERED: HYDROcodone/APAP 7.5/325 MG 1 TAB PO PRN (17:40)
--- NOTE | 2020-09-02 18:45 | NUR ---
PT SLEEPING IN BED, BREATHING EVEN AND UNLABORED, NO DISTRESS NOTED, VS STABLE. WILL CONTINUE TO MONITOR,.
[2020-09-02] MEDS ORDERED: PHYTONADIONE 10 MG/ML AMP IV ONE (18:50)
--- NOTE | 2020-09-02 18:50 | NUR ---
Spoke with Ranjana, pt for updates. [phone].
--- NOTE | 2020-09-02 19:03 | NUR ---
Note ramez in EDM - 09/02/20 at 1917 by MED1 First dose of Nitro given 0.4mg per MD order, BP 134/72, HR 82. After 5 minutes, pt denies chest pain. BP 112/76, HR 76 MD made aware, do not repeat nitro, hold per parameters.
[2020-09-02] MEDS ORDERED: PHYTONADIONE 10 MG in NACL 0.9% 50 ML IV SCH (19:10)
--- NOTE | 2020-09-02 19:20 | NUR ---
REPORT GIVEN TO EDUARDO VILLARREAL. TRANSFER OF CARE AT THIS TIME.
--- NOTE | 2020-09-02 21:30 | NUR ---
Patient will be admitted to care of [facility]. Admited to [facility]. Will go to room. Belongings list completed. Report to .
--- NOTE | 2020-09-02 21:45 | NUR ---
Patient was transferred from ER to [facility]. Patient is English speaking A&Ox4 able to make needs known. Patient has 0 s/s of distress no C/O of discomfort chest rise equal and unlabored. Patient was admitting for blood in emesis following a binge drinking episode where he had 18 beers, patient also had a fall during this event. Diagnosis was upper GI bleed. All current needs have been met and RN started IV vitamin K infusion that was past due. Bed is in the lowest position, call light is within reach. Patient is aware that he is still NPO. Will continue to monitor patient throughout the shift.
[2020-09-02] MEDS ORDERED: PHYTONADIONE 10 MG/ML AMP ONE (22:30)
[2020-09-03] VITALS: BP 118/62
[2020-09-03 04:00] VITALS: BP 121/64
--- NOTE | 2020-09-03 06:45 | NUR ---
Patient is currently resting 0 s/s of distress and no C/O of discomfort, chest rise is even and unlabored. Patient had x1 episode of hematemesis during the shift. Patient is A&Ox4 Setswana speaking able to make neeeds known, with call light within reach will endorse further care to am shift for continuity of care.
--- NOTE | 2020-09-03 07:15 | NUR ---
RECEIVED ENDORSEMENT AT THIS TIME PT IS STABLE AWAKE AND ALERT, DENIES ANY DISTRESS. SAFETY MEASURES IN PLACE. PLAN OF CARE DISCUSSED. WILL CONTINUE WITH POC.
[2020-09-03 08:00] VITALS: BP 130/72
--- NOTE | 2020-09-03 08:34 | NUR ---
PATIENT HAS BEEN SCREENED AND CATEGORIZED MODERATE NUTRITION RISK. PATIENT WILL BE SEEN WITHIN 3-5 DAYS OF ADMISSION. 09/05/20 09/07/[address]
[2020-09-03] MEDS ORDERED: ONDANSETRON 4 MG/2 ML VIAL IM/IVP PRN (08:35)
[2020-09-03] MEDS ORDERED: ZOLPIDEM 5 MG TAB PO PRN (08:35)
[2020-09-03] MEDS ORDERED: LORazepam 2 MG/ML VIAL IM/IVP PRN (08:35)
[2020-09-03] MEDS ORDERED: MAG SULF 2000 MG/WATER PREMIX 50 ML IV PRN (08:35)
[2020-09-03] MEDS ORDERED: HYDROcodone/APAP 5/325 MG 1 TAB TAB PO PRN (08:35)
[2020-09-03] MEDS ORDERED: ACETAMINOPHEN 325 MG TAB PO PRN (08:35)
[2020-09-03] MEDS ORDERED: DOCUSATE SODIUM 100 MG GELCAP PO PRN (08:35)
[2020-09-03] MEDS ORDERED: POTASSIUM CHLORIDE 10 MEQ TABER PO PRN (08:35)
[2020-09-03 09:24] LABS: BASOPHILS % (AUTO) 0.9 % (0.0-2.0); EOSINOPHILS % (AUTO) 0.1 % (0.0-4.0); HEMATOCRIT 26.4 % (36-52); HEMOGLOBIN 9.1 g/dL (12.0-18.0); LYMPHOCYTES # (AUTO) 0.9 K/uL (2.0-11.5); MEAN CORPUSCULAR HEMOGLOBIN 34 pg (27-31); MEAN CORPUSCULAR HGB CONC 35 g/dL (33-37); MEAN CORPUSCULAR VOLUME 98.5 fL (80-94); MONOCYTES # (AUTO) 0.4 K/uL (0.8-1.0); MONOCYTES % (AUTO) 7.8 % (1.7-9.3); NEUTROPHILS # (AUTO) 3.9 K/uL (1.8-7.7); NEUTROPHILS % (AUTO) 74.2 % (42.2-75.2); PLATELET COUNT (AUTO) 54 K/uL (140-450); RED BLOOD CELL COUNT(AUTO) 2.67 MIL/uL (4.20-6.10); RED CELL DISTRIBUTION WIDTH 14.2 % (11.6-13.7); WHITE BLOOD COUNT (AUTO) 5.2 K/uL (4.8-10.8)
[2020-09-03] MEDS: NACL 0.9% 1,000 ML IV SCH (09:30)
--- NOTE | 2020-09-03 09:39 | NUR ---
PT IS AWAKE AND ALERT IN NO DISTRESS CALL LIGHT WITHIN REACH. LUNG SOUNDS CLEAR, ABD IS SOFT AND NONTENDER WITH ACTIVE BS X 4. SKIN INTACT. HAS IV ACCESS TO LEFT LEFT AC 20 Q THAT IS INTACT AND PATENT AND RIGHT UPPER ARM THAT IS ALSO INTACT AND PATENT. PT STARTED ON IVF NS AT 60 ML PER MD ORDER. REMAINS NPO AT THIS TIME.
[2020-09-03 09:50] LABS: PROTHROMBIN TIME 17.2 secs (10.8-13.4)
[2020-09-03 10:11] LABS: ANION GAP 10.9 (8-16); CARBON DIOXIDE 26.2 mmol/L (21-32); CREATININE 0.7 mg/dL (0.6-1.3); POTASSIUM 4.1 mmol/L (3.5-5.1)
--- NOTE | 2020-09-03 10:30 | NUR ---
RESTING IN BED ALL NEEDS MET.
[2020-09-03 11:29] LABS: CHOL/HDL RATIO 8.8 (1-4.5); MAGNESIUM 1.5 mg/dL (1.8-2.4); PHOSPHORUS 2.7 mg/dL (2.5-4.9); THYROID STIMULATING HORMONE 0.18 uIU/mL (0.34-3.74)
[2020-09-03 12:00] VITALS: BP 140/70
--- NOTE | 2020-09-03 12:55 | NUR ---
PT REQUESTING FOOD EDUCATED ON NPO STATUS IN NO DISTRESS. EDUCATED ON NEED FOR UA SAMPLE
[2020-09-03] MEDS ORDERED: BLOOD GLUCOSE MONITORING 1 DEV DEV FS SCH (13:25)
[2020-09-03] MEDS ORDERED: DEXTROSE 50% 50 ML SYR IVP PRN (13:25)
--- NOTE | 2020-09-03 13:40 | NUR ---
SOCIAL WORK NOTE: SW WAS UNABLE TO MEET PATIENT AT BEDSIDE. SW CONTACTED PATIENT'S , [place] [phone] AND LEFT VM TO COMPLETE ASSESSMENT.
--- NOTE | 2020-09-03 14:38 | NUR ---
RESTING WITH EYES CLOSED IN NO DISTRESS.
[2020-09-03] MEDS ORDERED: diphenhydrAMINE 50 MG/ML VIAL ONE (14:40)
[2020-09-03] MEDS ORDERED: fentaNYL citrate 0.05 MG/ML VIAL ONE (14:40)
[2020-09-03] MEDS ORDERED: MIDAZOLAM 5 MG/5 ML VIAL ONE (14:41)
[2020-09-03] MEDS: MIDAZOLAM 2 MG/2 ML VIAL IVP SCH ×2 (15:24→18:10)
[2020-09-03] MEDS: fentaNYL citrate 0.05 MG/ML VIAL IVP SCH ×2 (15:25→18:05)
[2020-09-03] MEDS: diphenhydrAMINE 50 MG/ML VIAL IVP SCH ×2 (15:28→18:00)
[2020-09-03 16:00] VITALS: BP 151/92
--- NOTE | 2020-09-03 16:10 | NUR ---
PT RETURNED FROM SURGERY AT 1604 DENIES ANY DISTRESS REPORTS FEELING TIRED AND SLEEPY DUE TO MEDICATION GIVEN IN OR. SAFETY MEASURES IN PLACE CALL LIGHT WITHIN REACH. EDUCATED ON MOVING SLOWLY AND CALLING FOR ASSISTANCE.
[2020-09-03] MEDS ORDERED: LACTULOSE 20 GM/30 ML UDC PO SCH ×2 (16:30→21:00)
[2020-09-03] MEDS: chlordiazePOXIDE 25 MG CAP PO SCH (17:00)
[2020-09-03] MEDS: LACTULOSE 20 GM/30 ML UDC PO SCH (17:00)
[2020-09-03] MEDS: BLOOD GLUCOSE MONITORING 1 DEV DEV FS SCH ×2 (17:03→20:34)
[2020-09-03] MEDS: INSULIN LISPRO SLIDING SCALE 100 UNITS/ML VIAL SUBQ PRN ×2 (17:04→20:39)
--- NOTE | 2020-09-03 19:20 | NUR ---
PT ENDORSED TO GLOBAL SUPPLY CHAIN VICE PRESIDENT RN PT STABLE
--- NOTE | 2020-09-03 19:28 | NUR ---
RECEIVED PT IN IN STABLE CONDITION FROM AM NURSE. ON TELE MONITOR. AWAKE ALERT AND ORIENTED X4. WITH NO C/O ANY DISCOMFORT NOTED. HAS IVF INFUSING WELL ON THE LT AC G#20. CLEAR AND PATENT. PLAN OF CARE DISCUSSED AN VERBALIZED UNDERSTANDING. FREQ ROUNDS NEEDED. BED ON LOW POSITION. SIDE RAILS UP X2 AND CALL LIGHT PLACED WITHIN REACH. WILL CONTINUE TO MONITOR.
[2020-09-03 20:00] VITALS: BP 150/77
[2020-09-03] MEDS: GLIMEPIRIDE 2 MG TAB PO SCH (20:35)
[2020-09-03] MEDS: RIFAXIMIN 550 MG TAB PO SCH (20:35)
--- NOTE | 2020-09-03 20:36 | NUR ---
BLOOD SUGAR WAS CHECKED RESULT 298. INSULIN COVERAGE GIVEN SUBQ. PROVIDED WITH APPLE JUICE. WILL CONTINUE TO MONITOR.
[2020-09-03] MEDS ORDERED: LORazepam 2 MG/ML VIAL IVP PRN (21:00)
[2020-09-03] MEDS ORDERED: MAGNESIUM CITRATE 300 ML BTL PO SCH (21:00)
[2020-09-03] MEDS: LORazepam 1 MG TAB PO SCH (21:00)
--- NOTE | 2020-09-03 22:00 | NUR ---
MADE ROUNDS . PT IS ASLEEP. NO S/S OF ANY DISCOMFORT NOR PAIN NOTED. WILL CONTINUE TO MONITOR.
--- NOTE | 2020-09-03 23:00 | NUR ---
COLLECTED URINE SPECIMEN FOR UA AND UDS. WILL SEND TO LAB.
[2020-09-03 23:53] LABS: APPEARANCE,URINE CLEAR (CLEAR); BILIRUBIN,URINE NEGATIVE (NEGATIVE); BLOOD, URINE TRACE-I (NEGATIVE); COLOR,URINE DARK YELLOW (YELLOW); LEUKOCYTE ESTERASE ,URINE NEGATIVE (NEGATIVE); NITRITE, URINE NEGATIVE (NEGATIVE); PH,URINE 7.5 (5.0-9.0); UGLUCOSE 1+ (NEGATIVE)
[2020-09-04] VITALS: BP 148/80
[2020-09-04 00:01] LABS: BARBITURATE, URINE NEGATIVE ng/ml (NEG <=200); BENZODIAZEPINE, URINE NEGATIVE ng/mL (NEG <=200); CANNABINOID, URINE NEGATIVE ng/mL (NEG <=50); COCAINE, URINE NEGATIVE ng/mL (NEG <=300); OPIATE, URINE NEGATIVE ng/mL (NEG <=2000); PHENCYCLIDINE SCREEN,URINE NEGATIVE ng/mL (NEG <=25)
[2020-09-04 00:03] LABS: RBC,URINE 0-5 /HPF (0-5); WBC,URINE 0-5 /HPF (0-5)
--- NOTE | 2020-09-04 00:40 | NUR ---
CHECKED ON PT. SLEEPING. WITH NO ALCOHOL WITHDRAWAL SYMPTOMS NOTED. WILL CONTINUE TO MONITOR.
--- NOTE | 2020-09-04 02:30 | NUR ---
MADE ROUNDS . PT ASLEEP. NO S/S OF ANY DISCOMFORT NOTED.
[2020-09-04 04:00] VITALS: BP 145/78
[2020-09-04] MEDS: LORazepam 1 MG TAB PO SCH ×3 (04:46→20:55)
[2020-09-04] MEDS: BLOOD GLUCOSE MONITORING 1 DEV DEV FS SCH ×4 (05:57→20:54)
--- NOTE | 2020-09-04 06:00 | NUR ---
BLOOD SUGAR WAS CHECKED THIS AM RESULT 137. NO INSULIN NEEDED.
[2020-09-04] MEDS: NACL 0.9% 1,000 ML IV SCH ×2 (06:18→08:35)
[2020-09-04 06:31] LABS: ANION GAP 8.9 (8-16); CARBON DIOXIDE 27.5 mmol/L (21-32); CREATININE 0.6 mg/dL (0.6-1.3); MAGNESIUM 2.1 mg/dL (1.8-2.4); PHOSPHORUS 1.3 mg/dL (2.5-4.9); POTASSIUM 3.4 mmol/L (3.5-5.1)
[2020-09-04 06:50] LABS: BASOPHILS # (AUTO) 0.1 K/uL (0.00-0.22); BASOPHILS % (AUTO) 1.1 % (0.0-2.0); EOSINOPHILS # (AUTO) 0.1 K/uL (0-0.4); EOSINOPHILS % (AUTO) 2.5 % (0.0-4.0); HEMATOCRIT 24.8 % (36-52); HEMOGLOBIN 8.6 g/dL (12.0-18.0); LYMPHOCYTES # (AUTO) 0.8 K/uL (2.0-11.5); LYMPHOCYTES % (AUTO) 17.1 % (20.5-51.1); MEAN CORPUSCULAR HEMOGLOBIN 34 pg (27-31); MEAN CORPUSCULAR HGB CONC 35 g/dL (33-37); MEAN CORPUSCULAR VOLUME 98.7 fL (80-94); MONOCYTES # (AUTO) 0.3 K/uL (0.8-1.0); MONOCYTES % (AUTO) 5.7 % (1.7-9.3); NEUTROPHILS # (AUTO) 3.4 K/uL (1.8-7.7); NEUTROPHILS % (AUTO) 73.6 % (42.2-75.2); RED BLOOD CELL COUNT(AUTO) 2.51 MIL/uL (4.20-6.10); RED CELL DISTRIBUTION WIDTH 13.8 % (11.6-13.7); WHITE BLOOD COUNT (AUTO) 4.6 K/uL (4.8-10.8)
[2020-09-04 06:55] LABS: PLATELET COUNT (AUTO) 33 K/uL (140-450)
[2020-09-04 07:07] LABS: HEPATITIS A ANTIBODY IGM Negative (Negative); HEPATITIS B CORE AB TOTAL Negative (Negative); HEPATITIS B SURFACE ANTIBODY Non Reactive (.); HEPATITIS B SURFACE ANTIGEN Negative (Negative)
--- NOTE | 2020-09-04 07:25 | NUR ---
ENDORSED PT IN STABLE CONDITION TO AM NURSE.
--- NOTE | 2020-09-04 07:26 | NUR ---
RECEIVED REPORT FROM CAUSE ANALYST NURSE FOR CONTINUATION POC. PATIENT IS IN BED AOX4. ON ROOM AIR. IV SITE IS IN PLACE AND INTACT. NO DISTRESS NOTED. SAFETY MEASURES ARE IN PLACE. CALL LIGHT WITHIN REACH. WILL CONTINUE TO MONITOR NEEDED.
[2020-09-04 08:00] VITALS: BP 133/82
[2020-09-04 08:08] LABS: T4 (THYROXINE) 3.9 ug/dL (4.5-12.0)
[2020-09-04] MEDS: LACTULOSE 20 GM/30 ML UDC PO SCH ×3 (08:50→16:20)
[2020-09-04] MEDS: MULTIVITAMIN 1 TAB PO SCH (08:50)
[2020-09-04] MEDS: THIAMINE 100 MG TAB PO SCH (08:51)
[2020-09-04] MEDS: chlordiazePOXIDE 25 MG CAP PO SCH ×3 (08:51→16:20)
[2020-09-04] MEDS: FOLIC ACID 1 MG TAB PO SCH (08:51)
[2020-09-04] MEDS: RIFAXIMIN 550 MG TAB PO SCH ×2 (08:53→20:55)
[2020-09-04] MEDS: GLIMEPIRIDE 2 MG TAB PO SCH ×2 (08:53→20:54)
--- NOTE | 2020-09-04 08:59 | NUR ---
SCHEDULED MEDICATIONS DUE GIVEN. NO DISTRESS NOTED. NS 1000 NOT GIVEN DUE TO PREVIOUS STILL RUNNING.
--- NOTE | 2020-09-04 11:40 | NUR ---
PATIENT BLOOD SUGAR WAS 245. PER DR ORDER GAVE 4 UNITS OF INSULIN. PATIENT NOT IN DISTRESS. WILL CONTINUE TO MONITOR NEEDED.
[2020-09-04] MEDS: INSULIN LISPRO SLIDING SCALE 100 UNITS/ML VIAL SUBQ PRN ×2 (11:50→21:03)
[2020-09-04 12:00] VITALS: BP 128/78
--- NOTE | 2020-09-04 13:00 | NUR ---
SCHEDULED MEDICATIONS GIVEN. PATIENT NOT IN DISTRESS. WILL CONTINUE TO MONITOR NEEDED.
[2020-09-04 16:00] VITALS: BP 135/85
--- NOTE | 2020-09-04 16:21 | NUR ---
PATIENT BLOOD SUGAR IS 144. PER DR ORDER DID NOT HAVE TO GIVE INSULIN. ALSO SCHEDULED MEDICATIONS WERE GIVEN. NO DISTRESS NOTED. WILL CONTINUE TO MONITOR NEEDED.
--- NOTE | 2020-09-04 19:43 | NUR ---
ENDORSED TO SPRINKLER TENDER NURSE FOR CONTINUATION OF CARE. PT IS STABLE.
--- NOTE | 2020-09-04 19:45 | NUR ---
RECEIVED PT IN STABLE CONDITION FROM AM NURSE. ON TELE MONITOR. AWAKE,ALERT AND ORIENTED X4. WITH NO C/O ANY DISCOMFORT NOR PAIN NOTED. HAS IVF INFUSING ON THE LT AC g20. CLEAR AND PATENT. PLAN OF CARE DISCUSSED WITH PT. VERBALIZED UNDERSTANDING. FREQ ROUNDS NEEDED. BED ON LOW POSITION, SIDE RAILS UP X2 AND CALL LIGHT AND URINAL WITHIN EASY REACH. WILL CONTINUE TO MONITOR.
[2020-09-04 20:00] VITALS: BP 135/65
--- NOTE | 2020-09-04 21:03 | NUR ---
BLOOD SUGAR WAS CHECKED RESULT 221. INSULIN HUMALOG 4 UNITS SUBQ GIVEN.PROVIDED WITH SOME APPLE JUICE. WILL CONTINUE TO MONITOR.
--- NOTE | 2020-09-04 23:55 | NUR ---
CHECKED ON PT. ASLEEP. NO S/S OF ANY DISCOMFORT NOTED.
[2020-09-05] VITALS: BP 132/72
--- NOTE | 2020-09-05 02:00 | NUR ---
MADE ROUNDS. PT SLEEPING WITH NO S/S OF ANY DISCOMFORT NOR PAIN NOTED.
[2020-09-05 04:00] VITALS: BP 116/70
[2020-09-05] MEDS: LORazepam 1 MG TAB PO SCH (04:17)
[2020-09-05] MEDS: BLOOD GLUCOSE MONITORING 1 DEV DEV FS SCH ×2 (06:10→11:19)
--- NOTE | 2020-09-05 06:10 | NUR ---
BLOOD SUGAR THIS AM WAS CHECKED RESULT 100. NO INSULIN NEEDED.
[2020-09-05 06:45] LABS: BASOPHILS # (AUTO) 0.1 K/uL (0.00-0.22); BASOPHILS % (AUTO) 1.2 % (0.0-2.0); EOSINOPHILS # (AUTO) 0.2 K/uL (0-0.4); EOSINOPHILS % (AUTO) 3.6 % (0.0-4.0); HEMOGLOBIN 8.7 g/dL (12.0-18.0); LYMPHOCYTES # (AUTO) 1.2 K/uL (2.0-11.5); LYMPHOCYTES % (AUTO) 24.4 % (20.5-51.1); MEAN CORPUSCULAR HEMOGLOBIN 34 pg (27-31); MEAN CORPUSCULAR HGB CONC 35 g/dL (33-37); MEAN CORPUSCULAR VOLUME 99.1 fL (80-94); MONOCYTES # (AUTO) 0.5 K/uL (0.8-1.0); MONOCYTES % (AUTO) 9.3 % (1.7-9.3); NEUTROPHILS % (AUTO) 61.5 % (42.2-75.2); PLATELET COUNT (AUTO) 39 K/uL (140-450); RED BLOOD CELL COUNT(AUTO) 2.53 MIL/uL (4.20-6.10); RED CELL DISTRIBUTION WIDTH 14.1 % (11.6-13.7); WHITE BLOOD COUNT (AUTO) 4.9 K/uL (4.8-10.8)
[2020-09-05 07:06] LABS: ANION GAP 14.4 (8-16); CARBON DIOXIDE 23.3 mmol/L (21-32); CREATININE 0.6 mg/dL (0.6-1.3); POTASSIUM 3.7 mmol/L (3.5-5.1)
[2020-09-05 07:13] LABS: MAGNESIUM 1.8 mg/dL (1.8-2.4); PHOSPHORUS 1.7 mg/dL (2.5-4.9)
--- NOTE | 2020-09-05 07:25 | NUR ---
ENDORSED PT IN STABLE CONDITION TO AM NURSE.
--- NOTE | 2020-09-05 07:27 | NUR ---
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 SAFETY MEASURES IN PLACE AND CALL LIGHT WITHIN REACH. WILL CONTINUE TO MONITOR.
[2020-09-05 08:00] VITALS: BP 116/74
[2020-09-05] MEDS: NACL 0.9% 1,000 ML IV SCH (08:35)
[2020-09-05] MEDS: FOLIC ACID 1 MG TAB PO SCH (08:36)
[2020-09-05] MEDS: THIAMINE 100 MG TAB PO SCH (08:37)
[2020-09-05] MEDS: RIFAXIMIN 550 MG TAB PO SCH (08:37)
[2020-09-05] MEDS: GLIMEPIRIDE 2 MG TAB PO SCH (08:37)
[2020-09-05] MEDS: chlordiazePOXIDE 25 MG CAP PO SCH (08:38)
[2020-09-05] MEDS: LACTULOSE 20 GM/30 ML UDC PO SCH (08:38)
[2020-09-05] MEDS: MULTIVITAMIN 1 TAB PO SCH (08:38)
--- NOTE | 2020-09-05 08:38 | NUR ---
MEDICATION DUE GIVEN CHECK VITAL SIGNS PRIOR TO MEDICATION BP 116/74 ND 71 PATIENT FEELS BETTER AND NO COMPLAINS OF PAIN.
[2020-09-05] MEDS ORDERED: VIT1TAB10 PO (11:02)
[2020-09-05] MEDS ORDERED: LACT-103 PO (11:02)
[2020-09-05] MEDS ORDERED: PANT40EC PO (11:03)
[2020-09-05] MEDS: INSULIN LISPRO SLIDING SCALE 100 UNITS/ML VIAL SUBQ PRN (11:22)
--- NOTE | 2020-09-05 11:26 | NUR ---
BLOOD SUGAR 222 MG/DL INSULIN COVERAGE GIVEN.
[2020-09-05 12:00] VITALS: BP 142/80
--- NOTE | 2020-09-05 13:00 | NUR ---
DISCHARGED INSTRUCTIONS GIVEN TO PATIENT AT BEDSIDE AND ENCOURAGED TO CONTINUE MEDICATIONS AND FOLLOW UP WITH PCP AFTER 3-5 DAYS, ENCOURAGED TO STOP ALCOHOL INTAKE AND FOLLOW UP WITH BLOOD WORKS, INSTRUCTED TO SEEK MEDICAL HELP INCASE OF EMERGENCIES. REMOVED ID BANDS, IV INTACT AND NO BLEEDING, REMOVED TELEMONITOR AND RETURNED TO [employer]CE[employer], CHANGED PT CLOTHING, PATIENT TOOK ALL HIS BELONGINGS AND PATIENT ESCORTED TO FRONT LOBBY VIA WHEEL CHAIR. PATIENT ID DISCHARGED TO HOME ACCOMPANIED BY HIS FAMILY. PT IS STABLE.
== END 2020-09-05 12:55 | disposition home or self-care (01) | DRG 242 ==
LOC: MED 16:28 → MTU 17:39
PROC: 06L38CZ Occlusion of Esophageal Vein with Extraluminal Device, Via Natural or Artificial Opening Endoscopic (ICD-10-PCS; principal; 2020-09-03 14:30)
DX: I85.01 Esophageal varices with bleeding (principal); K70.30 Alcoholic cirrhosis of liver without ascites; K72.90 Hepatic failure, unspecified without coma; E43 Unspecified severe protein-calorie malnutrition; D64.9 Anemia, unspecified; D69.6 Thrombocytopenia, unspecified; E83.42 Hypomagnesemia; E11.9 Type 2 diabetes mellitus without complications; E78.5 Hyperlipidemia, unspecified; I85.11 Secondary esophageal varices with bleeding; F10.20 Alcohol dependence, uncomplicated; K76.6 Portal hypertension; Z91.19 Patient's noncompliance with other medical treatment and regimen; Z82.49 Family history of ischemic heart disease and other diseases of the circulatory system; Z68.25 Body mass index [BMI] 25.0-25.9, adult; Z20.822 Contact with and (suspected) exposure to COVID-19
CPT/HCPCS: 36415; 70450; 71045; 76700; 80048; 80053; 80305; 81001; 82140; 82948; 83036; 83690; 83735; 83880; 84100; 84134; 84436; 84443; 84484; 85025; 85610; 85730; 86704; 86706; 86708; 86709; 86803; 86886; 86900; 86901; 87081; 87340; 90715; 93005; 96361; 96374; 96375; 99291; C9113; G0482; J0696; J1200; J1815; J2250; J2354; J2405; J3010; J3430; J7030; J7060

== ENCOUNTER 2020-11-19 10:35 | Emergency (ER) | payer MEDICAID, SELFPAY ==
[~2020-11-19] VITALS: Ht 154.9 cm; Wt 69.6 kg
[~2020-11-19 10:35] MED LIST changes: +LACT-103 PO; -LACT10SO11 PO; -METF1000 PO; -OMEP20TC12 PO; +PANT40EC PO; -PROP20TA29 PO; +VIT1TAB10 PO
[2020-11-19 10:55] VITALS: BP 129/77
[2020-11-19] MEDS ORDERED: NACL 0.9% 1,000 ML IV ONE (11:35)
[2020-11-19] MEDS ORDERED: DICYCLOMINE HCL LIQUID 20 MG, ALUMINUM HYD/MAG/SIMETHICONE 30 ML, LIDOCAINE VISCOUS 2% ... PO ONE ×3 (11:35)
[2020-11-19] MEDS ORDERED: PANTOPRAZOLE 40 MG INJ VIAL IVP ONE (11:35)
[2020-11-19] MEDS ORDERED: LIDOCAINE VISCOUS 2% 20 ML UDC ONE (11:36)
[2020-11-19] MEDS ORDERED: ALUMINUM HYD/MAG/SIMETHICONE 30 ML UDC ONE (11:36)
[2020-11-19] MEDS ORDERED: DICYCLOMINE HCL LIQUID 10 MG/5 ML UDC ONE (11:37)
[2020-11-19 11:39] LABS: EOSINOPHILS # (AUTO) 0.1 K/uL (0-0.4); EOSINOPHILS % (AUTO) 2.2 % (0.0-4.0); HEMATOCRIT 39.6 % (36-52); HEMOGLOBIN 13.4 g/dL (12.0-18.0); LYMPHOCYTES # (AUTO) 1.2 K/uL (2.0-11.5); MEAN CORPUSCULAR HEMOGLOBIN 31 pg (27-31); MEAN CORPUSCULAR HGB CONC 34 g/dL (33-37); MEAN CORPUSCULAR VOLUME 90.6 fL (80-94); MONOCYTES # (AUTO) 0.3 K/uL (0.8-1.0); MONOCYTES % (AUTO) 7.4 % (1.7-9.3); NEUTROPHILS # (AUTO) 1.9 K/uL (1.8-7.7); NEUTROPHILS % (AUTO) 55.4 % (42.2-75.2); PLATELET COUNT (AUTO) 117 K/uL (140-450); RED BLOOD CELL COUNT(AUTO) 4.37 MIL/uL (4.20-6.10); RED CELL DISTRIBUTION WIDTH 15.6 % (11.6-13.7); WHITE BLOOD COUNT (AUTO) 3.5 K/uL (4.8-10.8)
[2020-11-19 11:57] LABS: PROTHROMBIN TIME 13.4 secs (10.8-13.4)
[2020-11-19 11:58] LABS: ALBUMIN 3.2 g/dL (3.4-5.0); ANION GAP 13.4 (8-16); CARBON DIOXIDE 26.7 mmol/L (21-32); CREATININE 0.7 mg/dL (0.6-1.3); POTASSIUM 4.1 mmol/L (3.5-5.1); TOTAL BILIRUBIN 0.7 mg/dL (0.0-1.0)
[2020-11-19] MEDS ORDERED: PHYTONADIONE 10 MG/ML AMP SUBQ ONE (13:00)
[2020-11-19] MEDS ORDERED: FAMO-92 PO (13:12)
[2020-11-19 13:27] VITALS: BP 124/74
== END 2020-11-19 13:27 | disposition home or self-care (01) ==
LOC: MED 10:35
DX: R04.0 Epistaxis (principal); K29.20 Alcoholic gastritis without bleeding; E11.9 Type 2 diabetes mellitus without complications; Z79.899 Other long term (current) drug therapy
CPT/HCPCS: 36415; 80053; 83690; 85025; 85610; 85730; 96372; 96374; 99284; C9113; J3430; J7030

== ENCOUNTER 2022-11-09 11:40 | Emergency (ER) | payer MEDICAID ==
[~2022-11-09] VITALS: Ht 162.6 cm; Wt 72.6 kg
[~2022-11-09 11:40] MED LIST changes: +FAMO-92 PO
[2022-11-09 11:55] VITALS: BP 129/81
--- NOTE | 2022-11-09 12:12 | NUR ---
AMB. TO BED W NO DISTRESS.
[2022-11-09] MEDS ORDERED: PANTOPRAZOLE 40 MG INJ VIAL IVP ONE (13:00)
[2022-11-09 13:27] LABS: BASOPHILS % (AUTO) 0.9 % (0.0-2.0); EOSINOPHILS # (AUTO) 0.1 K/uL (0-0.4); HEMATOCRIT 40.9 % (36-52); HEMOGLOBIN 14.1 g/dL (12.0-18.0); LYMPHOCYTES # (AUTO) 1.4 K/uL (2.0-11.5); LYMPHOCYTES % (AUTO) 32.8 % (20.5-51.1); MEAN CORPUSCULAR HEMOGLOBIN 31 pg (27-31); MEAN CORPUSCULAR HGB CONC 35 g/dL (33-37); MEAN CORPUSCULAR VOLUME 89.1 fL (80-94); MONOCYTES # (AUTO) 0.3 K/uL (0.8-1.0); MONOCYTES % (AUTO) 7.9 % (1.7-9.3); NEUTROPHILS # (AUTO) 2.3 K/uL (1.8-7.7); NEUTROPHILS % (AUTO) 56.4 % (42.2-75.2); PLATELET COUNT (AUTO) 106 K/uL (140-450); RED BLOOD CELL COUNT(AUTO) 4.59 MIL/uL (4.20-6.10); RED CELL DISTRIBUTION WIDTH 12.6 % (11.6-13.7); WHITE BLOOD COUNT (AUTO) 4.1 K/uL (4.8-10.8)
[2022-11-09 13:46] LABS: ALBUMIN 3.6 g/dL (3.4-5.0); ANION GAP 9.6 (8-16); CARBON DIOXIDE 29.4 mmol/L (21-32); CREATININE 0.7 mg/dL (0.6-1.3); TOTAL BILIRUBIN 0.6 mg/dL (0.0-1.0)
[2022-11-09 14:00] LABS: PROTHROMBIN TIME 12.9 secs (10.8-13.4)
[2022-11-09] MEDS ORDERED: NACL 0.9% 1,000 ML IV ONE (15:10)
[2022-11-09] MEDS ORDERED: PANT40EC PO (16:54)
[2022-11-09] MEDS ORDERED: HYDR-2734 TP (16:54)
[2022-11-09 18:00] VITALS: BP 108/74
--- NOTE | 2022-11-09 19:27 | NUR ---
Patient discharged with v/s stable. Written and verbal after care instructions given and explained. Patient verbalized understanding. Ambulatory with steady gait. All questions addressed prior to discharge. Advised to follow up with PMD. PT. WITH NO ACUTE BLEEDING. NO ACUTE DISTRESS. NO SOB, STABLE FOR D/C
== END 2022-11-09 18:00 | disposition home or self-care (01) ==
LOC: MED 11:40
DX: K92.2 Gastrointestinal hemorrhage, unspecified (principal); E11.9 Type 2 diabetes mellitus without complications; Z79.4 Long term (current) use of insulin; Z79.899 Other long term (current) drug therapy
CPT/HCPCS: 36415; 74176; 80053; 82272; 83690; 85025; 85610; 85730; 86886; 86900; 86901; 93005; 96361; 96374; 99285; C9113; J7030